=== PATIENT | female | born 1995 | race Two or more races ===

== ENCOUNTER 2024-07-19 14:41 | Outpatient (RCR) | payer OTHER, SELFPAY | END 2024-07-19 23:59 | disposition home or self-care (01) | LOC: RPT 14:41 | PROVIDERS: ATTENDING PHYSICIAN Nurse Practitioner | DX: M54.59 Other low back pain (principal) | CPT/HCPCS: 97110; 97162; 97535 ==

== ENCOUNTER 2024-07-31 16:02 | Outpatient (RCR) | payer OTHER, SELFPAY | END 2024-07-31 23:59 | disposition home or self-care (01) | LOC: RPT 16:02 | PROVIDERS: ATTENDING PHYSICIAN Nurse Practitioner | DX: M54.59 Other low back pain (principal); M54.9 Dorsalgia, unspecified | CPT/HCPCS: 97010; 97110; 97140 ==

== ENCOUNTER 2025-07-21 16:02 | Emergency (ER) | payer OTHER, SELFPAY ==
[2025-07-21 16:05] VITALS: BP 135/86
[2025-07-21 16:40] LABS: Urine Character Clear (Clear)
[2025-07-21 16:41] LABS: Hematocrit 40.1 % (37.0-47.0); Hemoglobin 13.0 g/dL (12.0-16.0); Mean Corp Hgb Conc. 32.4 g/dL (33.0-37.0); Mean Corpuscular Volume 76.8 fL (81.0-99.0); Platelet Count 328 10^3/uL (130-400); Red Cell Dist. Width 13.9 % (11.5-14.5)
[2025-07-21 16:46] LABS: ALT (SGPT) 20 U/L (0-35); AST (SGOT) 21 U/L (14-36); Albumin 4.6 g/dl (3.5-5.0); Alkaline Phosphatase 83 U/L (38-126); Blood Urea Nitrogen 11 mg/dl (7-17); Calcium 9.0 mg/dl (8.4-10.2); Carbon Dioxide 27 mmol/L (22-30); Chloride 102 mmol/L (98-107); Glucose 91 mg/dl (70-99); Potassium 3.9 mmol/L (3.5-5.1); Sodium 137 mmol/L (135-145); Total Protein 7.8 g/dl (6.3-8.2); eGFR > 60.00
--- NOTE | 2025-07-21 17:13 | ED.GENMED ---
History of Present Illness
General
Chief Complaint: Abdominal Pain
Source: patient
Exam Limitations: none
Time Seen by Provider: 07/21/25 16:50
History of Present Illness
History of Present Illness:
29yoF with no significant past medical history presenting for evaluation of abdominal pain. Symptoms began 3 days ago. She reports pain in her right mid abdomen that has been constant and gradually worsening. She describes feeling like there is a
rock in her abdomen. Pain is worse with movement and was worse when she was going over bumps during a car ride earlier today. She tried Tylenol without any relief. She was seen by her PCP today who advised her to go to the ED for concern for
appendicitis. Patient denies any fevers, chills, vomiting, urinary symptoms, vaginal discharge, vaginal bleeding. She has an appointment scheduled with gastroenterology in September for abnormal bowel movements. She is alternating between diarrhea
and constipation. Only prior abdominal surgeries were 2 C-sections. LMP 1 week ago and home test was negative.
Phy Exam
General Physical Exam
General Presentation: well appearing and no apparent distress
General age: appears stated age
General Skin: warm and dry
General Habitus: normal
General Mental: alert
ENT Exam
ENT Exam: normocephalic
Pulmonary Exam
Pulmonary Exam: no respiratory distress
Gastrointestinal Exam
Gastrointestinal Exam: soft, non distended and other (+Tenderness in R mid abdomen. Abdomen soft, non-distended. No rebound or guarding. Negative Riddle's sign. )
Neurological Exam
Neurological Exam: alert
Kermit Coma Scale
Eye Opening: Spontaneous
Verbal Response: Oriented
Motor Response: Obeys Commands
GCS Total Score: 15
Skin Exam
Skin Exam: normal color and warm/dry
Psychiatric Exam
Psychiatric Exam: normal mood/affect
Course
Orders/Labs/Results
Orders:
Orders
07/21/25 16:14
Complete Blood Count/With Diff Urgent
Comprehensive Metabolic Panel Urgent
HCG, Serum Qualitative Screen Urgent
Comment: ADD ON
Urinalysis Reflex To Culture Urgent
Date Specimen was Collected: 07/21/25
Time Specimen was Collected: 16:09
07/21/25 17:12
Add On- LAB Urgent
Tests Added?: qualitative HCG
CT Abd/pelvis W Iv Cont Urgent
Comment:
Reason For Exam: RLQ pain
Ketorolac [Toradol] 15 mg IV NOW STA
Abnormal Lab Results
07/21/25
16:14
MCV 76.8 L fL
(81.0-99.0)
MCH 24.9 L pg
(27.0-31.0)
MCHC 32.4 L g/dL
(33.0-37.0)
Absolute Lymphs (auto) 5.2 H 10^3/uL
(1.2-3.4)
Neutrophils % 33.7 L %
(42.2-75.2)
Lymphocytes % 58.6 H %
(20.5-51.1)
07/21/25 16:14
07/21/25 16:14
Vital Signs
Initial and Last Documented VS:
Initial Vital Signs
Temp Pulse Resp BP Pulse Ox
97.3 F 79 20 135/86 97
07/21/25 16:05 07/21/25 16:05 07/21/25 16:05 07/21/25 16:05 07/21/25 16:05
Last Documented Vital Signs
Temp Pulse Resp BP Pulse Ox
97.3 F 79 20 135/86 97
07/21/25 16:05 07/21/25 16:05 07/21/25 16:05 07/21/25 16:05 07/21/25 17:16
MDM/Problems Addressed
Differential Diagnosis Includes:
29yoF here with R sided abd pain x 3 days that is worse with movement. Sent here by PCP for concern for appendicitis. VSS. Patient well appearing in no distress. No signs of peritonitis on abdominal exam. Differential diagnosis includes:
appendicitis, mesenteric adenitis, kidney stone, biliary colic, musculoskeletal, nonspecific abdominal pain
Initial ED plan: Workup initiated in triage. Labs overall unremarkable including normal white count, renal function, LFTs. No hematuria or signs of infection on urinalysis. Will check hCG testing and CT abdomen with IV contrast. IV Toradol for
pain.
*Pulse Oximetry
SaO2: 97
Oxygen Mode of Delivery: Room air
Patient hypoxic: no
*Critical Care Note
Total Time (30-74mins, 75-104mins- exclusive of procedures): Not Applicable
Update Note
Update Note:
hCG negative. CT is negative for acute findings. Specifically, appendix appears normal and no gallstones noted. Unclear etiology of symptoms. On reassessment, now present who states patient has been having ongoing issues with abdominal
pain for a year now. She is scheduled to see gastroenterology in September. Patient advised to also f/u with PCP and return to the ED with any fevers/severe pain. Patient discharged in stable condition.
ED Attending Note
-
Portions of this chart may have been created with voice recognition software.� Occasional wrong word or��sound alike� substitutions may have occurred due to the inherent limitations of voice recognition software.
Discharge Plan
Departure
Patient Disposition: Home (Routine Discharge)
Date of Disposition: 07/21/25
Time of Disposition: 20:17
Patient with high blood pressure during this ER visit?: No
Discharge Problem:
Nonspecific abdominal pain
Instructions: Abdominal Pain
Referrals:
Meera Cisse CRNP [Family Provider, Family Practice]
Brittany Aguilera DO [Active, Gastroenterology]
Activity Restrictions/Additional Instructions:
Your CT scan today was negative for appendicitis.
Please call tomorrow to schedule follow-up appointments with your family doctor and gastroenterology. Return to the ER with any new or worsening symptoms including fevers.
Interventions
Interventions:
*General Assessment Last Done: 07/21/25 16:05
*Neglect/Abuse Screening Last Done: 07/21/25 16:05
*Risk Screen - Suicide (C-SSRS) Last Done: 07/21/25 16:05
*Nursing Disposition Last Done: 07/21/25 20:38
VY-Fpmjer-Wdwppanfox Assessment Last Done: 07/21/25 17:12
Discharge Date and Time
Discharge Date/Time: 07/21/25 20:38
Print Language: [place]
[2025-07-21 17:14] LABS: Anisocytosis 1+; Hypochromasia OCC; Macrocytosis 1+; Normal RBC Morphology No; Nucleated Red Blood Cells % 0 %
[2025-07-21 17:15] LABS: Smudge Cells 12; Stomatocytes 2+
[2025-07-21] MEDS: TORADOL 15 MG IV (17:16)
[2025-07-21 17:45] LABS: HCG, Serum Qualitative Screen Negative
== END 2025-07-21 20:38 | disposition home or self-care (01) ==
LOC: EMR 16:02
PROVIDERS: EMERGENCY PHYSICIAN Emergency Medicine; FAMILY PHYSICIAN Nurse Practitioner
DX: R10.9 Unspecified abdominal pain (principal); R11.0 Nausea; Z88.2 Allergy status to sulfonamides; Z91.018 Allergy to other foods
CPT/HCPCS: 99284; 96374; 74177; 80053; 81003; 84703; 85025; Q9967